=== PATIENT | male | born 1965 | race Caucasian/White ===

== ENCOUNTER 2020-01-13 04:13 | Day surgery (SDC) | payer BC, OTHER ==
[2020-01-11 17:28] VITALS: BMI 39.1
[~2020-01-13 04:13] MED LIST: BUPIVACAINE HCL/PF 0.5% (5MG/ML) 10 ML VIAL NR ONE
--- OUTSIDE RECORDS SUMMARY | 2020-01-13 04:17 | XMS ---
:1965 [facility] Support Name Relationship Address Phone [employer], [employer] Unavailable [address] [place] [address] [employer] [address] [place] [address] ESTELLE ORTA [address] [place] [address] Re-disclosure Warning The records that you are about to access may contain information from federally- assisted alcohol or drug abuse programs. If such information is present, then the following federally mandated warning applies: This information has been disclosed to you from records protected by federal confidentiality rules (42 CFR part 2). The federal rules prohibit you from making any further disclosure of this information unless further disclosure is expressly permitted by the written consent of the person to whom it pertains or as otherwise permitted by 42 CFR part 2. A general authorization for the release of medical or other information is NOT sufficient for this purpose. The Federal rules restrict any use of the information to criminally investigate or prosecute any alcohol or drug abuse patient.The records that you are about to access may contain highly sensitive health information, the redisclosure of which is protected by Article 27-F of the [facility] Public Health law. If you continue you may haveaccess to information: Regarding HIV / AIDS; Provided by facilities licensed or operated by the [facility] Office of Mental Health; or Provided by the [facility] Office for People With Developmental Disabilities. If such information is present, then the following [facility] mandated warning applies: This information has been disclosed to you from confidential records which are protected by state law. State law prohibits you from making any further disclosure of this information without the specific written consent of the person to whom it pertains, or as otherwise permitted by law. Any unauthorized further disclosure in violation of state law may result in a fine or fdc sentence or both. A general authorization for the release of medical or other information is NOT sufficient authorization for further disclosure. Insurance Providers Payer name Policy type / Policy ID Covered Covered libertarian's Policy Plan Coverage type libertarian ID relationship to [employer]hi Information qureshi [facility] [id number] [facility] [id number] 01 OUTPT 1 [facility] [id number] 01 OUTPT 1 [facility] [id number] Results ID Date Data Source [id number] 01/09/2020 01:05:00 PM EDT [facility] Name Value Range Interpretation Description Data Sup porting Code Source(s) Document(s ) SARS [facility] coronavirus 2 RNA This lab was ordered by [facility] and reported by [facility]. Procedure
[2020-01-13] MEDS ORDERED: DESFLURANE GAS 240 ML BOTTLE IH ONE (07:37)
[2020-01-13] MEDS ORDERED: PROPOFOL 20 ML ONE (07:37)
[2020-01-13] MEDS ORDERED: MIDAZOLAM HCL 2 MG/2 ML SINGLE DOSE VIAL ONE (07:38)
--- NOTE | 2020-01-13 07:54 | HP ---
Satellite [facility] - Chief Complaint Chief Complaint: right knee pain - Past Medical History Allergies/Adverse Reactions: Allergies Allergy/AdvReac Type Severity Reaction Status Date / Time No Known Allergies Allergy Verified 03/14/15 08:29 - Current Medications Current Medications: Home Medications Medication Instructions Recorded Albuterol Sulfate Inhaler - 1 - 2 inh PO PRN 01/11/20 [Ventolin Hfa Inhaler -] Budesonide/Formeterol Fumarate 1 inh PO PRN 01/11/20 [SYMBICORT 80/4.5mcg -] Cetirizine HCl [Zyrtec] 10 mg PO DAILY 01/11/20 Montelukast Na [Singulair -] 10 mg PO HS 01/11/20 Satellite Physical Exam - Physical Examination Vital Signs: Vital Signs Period Temp Pulse Resp BP Sys/Verdin Pulse Ox Last 24 Hr 96.6 F 81 20 142/78 98-98 General Appearance: Well Nourished, Well Developed, Alert & Oriented x3 ENT: Clear Lung: Normal air movement Extremities: Other (right knee- + swelling, + ttp, decr rom, + mcmurrays, nvi) Neurological: Intact, Alert, Oriented Satellite Impression/Plan - Impression/Plan Impression: right knee internal derangement Operative Procedure: right knee arthroscopy Date to be Performed: 01/13/20
[2020-01-13] MEDS ORDERED: LACTATED RINGERS SOLUTION 1,000 ML IV SCH (08:30)
[2020-01-13] MEDS ORDERED: ONDANSETRON 4 MG/2 ML VIAL IVPUSH PRN (08:30)
[2020-01-13] MEDS ORDERED: oxyCODONE HCL 5 MG TABLET PO PRN ×2 (08:30)
[2020-01-13] MEDS ORDERED: BUPIVACAINE HCL/PF 0.5% (5MG/ML) 10 ML VIAL NR ONE (08:55)
[2020-01-13] MEDS ORDERED: LABETALOL HCL 5 MG/1 ML (100MG/20 ML VIAL) IVPUSH ONE ×5 (09:20→09:56)
--- NOTE | 2020-01-13 09:30 | OP ---
Operative Note - Note: Operative Date: 01/13/20 ([facility]) Pre-Operative Diagnosis: right knee internal derangement Operation: right knee arthroscopy PMM, synovectomy Post-Operative Diagnosis: Same as Pre-op Surgeon: Juan Pablo Martino Production Planner Scheduler: Juan Castrejon Anesthesia: General, Local Specimens Removed: shavings Estimated Blood Loss (mls): 5
[2020-01-13] MEDS ORDERED: oxyCODONE HCL 5 MG TABLET ONE (10:57)
[2020-01-13 11:58] VITALS: TEMP 97.7
--- NOTE | 2020-01-13 12:02 | OP ---
DATE OF OPERATION: 01/13/2020 PREOPERATIVE DIAGNOSIS: Right knee medial meniscus tear. POSTOPERATIVE DIAGNOSIS: Right knee medial meniscus tear plus synovitis and osteoarthritis. PROCEDURE: Right knee arthroscopy, partial medial meniscectomy and partial synovectomy. SURGEON: Juan Pablo Martino MD ASSISTANT DIRECTOR: Aliza Moore MD ANESTHESIOLOGIST: Hossein Gambino MD ANESTHESIA: LMA anesthesia with local injection 20 mL of 0.5% Marcaine. DRAINS: None. COMPLICATIONS: None. SPECIMENS: Arthroscopic shavings. BLOOD LOSS: None. BLOOD GIVEN: None. FLUID REPLACEMENT: Plasma-Lyte 700 mL. INDICATIONS: This patient is a 54-year-old male with a preoperative diagnosis of right knee pain and medial meniscus tear and osteoarthritis. After understanding the potential risks, complications, alternatives and benefits of surgery versus nonsurgical treatment the patient elected to undergo this procedure. He understands his right knee will not be perfect as he will still have osteoarthritis. DESCRIPTION OF PROCEDURE: The patient was brought to the operating room, peripheral IV placed and IV sedation given. Two g of IV Ancef were given. LMA anesthesia was induced. Ample Webril was placed around the right thigh. Tourniquet was applied. The Styrofoam ring was applied. The right lower extremity was placed in the C-clamp leg liang, was prepped and draped in a sterile fashion, elevated, exsanguinated with an Esmarch bandage and then tourniquet inflated to 275 mmHg. A superior medial outflow portal was established. A lateral portal was established. A diagnostic arthroscopy was performed. Under direct visualization a spinal needle was used to establish a medial portal. Immediately it was apparent the patient had a large complex tear of the posterior horn of the medial meniscus as well as grade 2 changes of the cartilage on the medial femoral condyle and medial tibial plateau. A combination of the right biter, straight basket forceps and curved shaver was utilized to do a partial medial meniscectomy as well as a gentle debridement chondroplasty. Photographs were taken before and after. Patient had a lot of inflammatory synovitis in the intercondylar notch as well as the medial compartment. This was debrided with the curved shaver. Photographs were taken before and after. Next, our attention turned to the ACL. It was probed. It had the appropriate tension and was intact. Next, our attention turned the lateral compartment where the patient had no pathology. The meniscus was probed. It looked good. There was no osteoarthritis, perhaps small areas of grade 1 changes on the lateral tibial plateau. Next, our attention turned to the patellofemoral joint. The patient had a tremendous amount of inflammatory synovitis and chondromalacial crab-meat effect. This was debrided with the curved shaver. debridement chondroplasty was performed in the patellofemoral joint as well as a partial synovectomy in the suprapatellar pouch. The area was copiously irrigated and washed out. Final photographs taken. All instrumentation and excess saline were removed. The arthroscopy portals were closed with 3-0 nylon sutures. The area was then washed and dried, covered with Xeroform, 4 x 4 gauze, Webril and a 6-inch Blaze bandage. Twenty mL of 0.5% Marcaine were injected into the joint. Tourniquet was taken down after total tourniquet time of about 22 minutes. There was no complication during the case. The patient tolerated the procedure quite well and was brought to the ambulatory recovery room in stable condition. ALIZA MOORE M.D. [id number]
[2020-01-13] MEDS ORDERED: KETOROLAC TROMETHAMINE 30 MG/1 ML VIAL ONE (12:04)
[2020-01-13] MEDS ORDERED: KETOROLAC TROMETHAMINE 30 MG/1 ML VIAL IVPUSH ONE (12:10)
[2020-01-13 15:12] VITALS: BP 157/86; PULSE 87
--- NOTE | 2020-01-15 13:06 | PATH ---
Surgical Pathology Report Patient Name: RALF REYNOLDS Med. Rec. #: [id number] /Age/Gender: 1965 (Age: 54) / M Account: [id number] Location: [facility] SURGICAL Taken: 01/13/2020 Received: 01/13/2020 Reported: 01/15/2020 Physicians: Willow Gallo M.D. Specimen(s) Received SHAVINGS RIGHT KNEE Clinical History Tear right knee Final Diagnosis KNEE, RIGHT, ARTHROSCOPIC SHAVINGS: FIBROSYNOVIAL TISSUE AND CARTILAGE. Electronically Signed Tasneem Aponte M.D. Gross Description Received in formalin, labeled "shavings right knee," is a 5.5 x 4.0 x 0.5 cm. aggregate of vargas-yellow soft tissue fragments. A renewals representative portion is submitted in one cassette. DL/01/13/2020 saudi/01/13/2020
== END 2020-01-13 12:40 | disposition home or self-care (01) ==
LOC: JASU-SURG 04:13
PROVIDERS: ATTEND Orthopaedic Surgery
PROC: 0SBC4ZZ Excision of Right Knee Joint, Percutaneous Endoscopic Approach (ICD-10-PCS; principal; 2020-01-13 08:00)
DX: S83.241A Other tear of medial meniscus, current injury, right knee, initial encounter (principal); X58.XXXA Exposure to other specified factors, initial encounter; Y93.9 Activity, unspecified; Y92.9 Unspecified place or not applicable; Y99.9 Unspecified external cause status; M17.11 Unilateral primary osteoarthritis, right knee; M65.9 Synovitis and tenosynovitis, unspecified
CPT/HCPCS: 88304-TC; 94760

== ENCOUNTER 2022-05-06 09:58 | Observation (INO) | payer BC, OTHER ==
[2022-05-06 10:35] VITALS: BMI 37.5
[2022-05-06 11:19] LABS: BASO % 0.3 % (0-2.0); EOS % 1.8 % (0-4.5); HEMATOCRIT 51.8 % (35.4-49); HEMOGLOBIN 17.5 GM/dL (11.7-16.9); LYMPH % 19.1 % (8-40); MCH 29.2 pg (25.7-33.7); MCHC 33.7 g/dl (32.0-35.9); MEAN CELL VOLUME 86.6 fl (80-96); MEAN PLT VOLUME 8.6 fl (7.5-11.1); MONO % 8.4 % (3.8-10.2); NEUT % 70.4 % (42.8-82.8); PLATELET COUNT 219 10^3/uL (134-434); RBC 5.98 M/mm3 (4.00-5.60); RDW 13.9 % (11.9-15.9); WHITE BLOOD COUNT 6.2 K/mm3 (4.0-10.0)
[2022-05-06 11:26] LABS: INR 1.19 (0.83-1.09); PROTHROMBIN TIME (PATIENT) 13.7 SEC (9.7-13.0)
[2022-05-06 11:29] LABS: ACTIVATED PTT 31.8 SECONDS (25.2-36.5)
[2022-05-06] MEDS ORDERED: dilTIAZem HCL 60 MG TABLET PO ONE (11:30)
[2022-05-06] MEDS ORDERED: dilTIAZem HCL 60 MG TABLET ONE (11:35)
[2022-05-06 11:42] LABS: ALBUMIN 4.2 g/dl (3.4-5.0); BLOOD UREA NITROGEN 16.3 mg/dL (7-18); CALCIUM 9.3 mg/dL (8.5-10.1)
[2022-05-06 11:43] LABS: MAGNESIUM 2.3 mg/dL (1.8-2.4)
[2022-05-06 11:47] LABS: BILIRUBIN,TOTAL 0.9 mg/dL (0.2-1); TOT PROT 7.3 g/dl (6.4-8.2)
[2022-05-06 12:06] LABS: N-TERMINAL BNP 64.5 pg/ml (5-125)
[2022-05-06] MEDS ORDERED: METOPROLOL TARTRATE 50 MG TABLET (FP) PO ONE (14:58)
[2022-05-06] MEDS ORDERED: METOPROLOL TARTRATE 50 MG TABLET (FP) ONE ×2 (15:28→21:34)
[2022-05-06] MEDS ORDERED: ALBUTEROL SO4 HFA INHALER IH PRN (16:07)
[2022-05-06 17:31] LABS: PHENCYCLIDINE,URINE NEGATIVE (NEGATIVE)
[2022-05-06 17:32] LABS: COCAINE, UR NEGATIVE (NEGATIVE); METHADONE, UR NEGATIVE (NEGATIVE); OPIATES, URI NEGATIVE (NEGATIVE); URINE AMPHETAMINES NEGATIVE (NEGATIVE)
[2022-05-06 17:59] LABS: URINE BARBITURATES NEGATIVE (NEGATIVE); URINE BENZODIAZEPINES NEGATIVE (NEGATIVE)
[2022-05-06] MEDS ORDERED: SODIUM CHLORIDE 0.45% 1,000 ML IV SCH (19:45)
[2022-05-06] MEDS ORDERED: APIXABAN 5 MG TABLET ONE (21:34)
[2022-05-06] MEDS ORDERED: ATORVASTATIN CA 40 MG TABLET (FP) ONE ×2 (21:34→21:35)
[2022-05-06] MEDS ORDERED: FAMOTIDINE 20 MG TABLET ONE (21:34)
[2022-05-06] MEDS ORDERED: MONTELUKAST NA 10 MG TABLET ONE (21:34)
[2022-05-06] MEDS: APIXABAN 5 MG TABLET PO SCH (21:49)
[2022-05-06] MEDS: METOPROLOL TARTRATE 50 MG TABLET (FP) PO SCH (21:49)
[2022-05-06] MEDS ORDERED: MONTELUKAST NA 10 MG TABLET PO SCH (22:00)
[2022-05-06] MEDS ORDERED: ATORVASTATIN CA 40 MG TABLET (FP) PO SCH (22:00)
[2022-05-06] MEDS ORDERED: FAMOTIDINE 20 MG TABLET PO SCH (22:00)
[2022-05-07 02:12] VITALS: RESP 16
[2022-05-07 07:21] LABS: BASO % 0.4 % (0-2.0); EOS % 2.5 % (0-4.5); HEMATOCRIT 48.2 % (35.4-49); HEMOGLOBIN 16.1 GM/dL (11.7-16.9); LYMPH % 24.8 % (8-40); MCH 29.3 pg (25.7-33.7); MCHC 33.5 g/dl (32.0-35.9); MEAN CELL VOLUME 87.3 fl (80-96); MEAN PLT VOLUME 8.7 fl (7.5-11.1); MONO % 8.4 % (3.8-10.2); NEUT % 63.9 % (42.8-82.8); PLATELET COUNT 215 10^3/uL (134-434); RBC 5.52 M/mm3 (4.00-5.60); RDW 14.5 % (11.9-15.9); WHITE BLOOD COUNT 7.5 K/mm3 (4.0-10.0)
[2022-05-07 07:37] LABS: ALBUMIN 3.9 g/dl (3.4-5.0); BLOOD UREA NITROGEN 17.2 mg/dL (7-18); CALCIUM 9.1 mg/dL (8.5-10.1); MAGNESIUM 2.3 mg/dL (1.8-2.4)
[2022-05-07 07:41] LABS: CREATININE 0.9 mg/dL (0.55-1.3)
[2022-05-07 07:42] LABS: BILIRUBIN,TOTAL 0.8 mg/dL (0.2-1); TOT PROT 6.8 g/dl (6.4-8.2)
[2022-05-07 07:44] LABS: CHOLESTEROL 135 mg/dL (50-200); TRIGLYCERIDES 199 mg/dL (0-150)
[2022-05-07 07:45] LABS: LDL CHOLESTEROL (ONLY SJRH) 80 mg/dL (5-100)
[2022-05-07 07:47] LABS: HDL CHOLESTEROL 32 mg/dL (40-60)
[2022-05-07] MEDS ORDERED: METOPROLOL TARTRATE 50 MG TABLET (FP) ONE (09:04)
[2022-05-07] MEDS ORDERED: VALSARTAN 80 MG TABLET ONE (09:04)
[2022-05-07] MEDS ORDERED: APIXABAN 5 MG TABLET ONE ×2 (09:04→20:30)
[2022-05-07] MEDS: APIXABAN 5 MG TABLET PO SCH (09:12)
[2022-05-07] MEDS: METOPROLOL TARTRATE 50 MG TABLET (FP) PO SCH (09:12)
[2022-05-07] MEDS ORDERED: VALSARTAN 80 MG TABLET PO SCH (10:00)
[2022-05-07 13:22] VITALS: BP 138/88; PULSE 78; TEMP 98
[2022-05-07] MEDS ORDERED: APIXABAN 5 MG TABLET PO ONE (20:17)
== END 2022-05-07 20:32 | disposition left against medical advice (07) ==
LOC: JER 09:58 → INTOOBSV 15:06 → JERBED 15:06 → UNDOADMOB 15:06 → JERBED 05-07 17:36
PROVIDERS: ADMIT Internal Medicine
PROC: 3E0337Z Introduction of Electrolytic and Water Balance Substance into Peripheral Vein, Percutaneous Approach (ICD-10-PCS; principal; 2022-05-07)
DX: I48.91 Unspecified atrial fibrillation (principal); I10 Essential (primary) hypertension; E78.5 Hyperlipidemia, unspecified; E66.8 Other obesity; R53.83 Other fatigue; Z68.37 Body mass index [BMI] 37.0-37.9, adult; Z87.891 Personal history of nicotine dependence; R00.2 Palpitations
CPT/HCPCS: 0241U-QW; 36415; 71045-TC-FY; 80053; 80061; 80307; 82550; 82553; 83735; 83880; 84439; 84443; 84484; 85025; 85610; 85730; 93005; 93010; 99285-25; G0378